=== PATIENT | male | born 1995 | race Caucasian/White ===

== ENCOUNTER 2017-10-13 08:46 | Emergency (ER) | payer OTHER ==
[2017-10-13] MEDS: NAPROXEN 250 MG TAB PO (09:36)
[2017-10-13] MEDS: LIDOCAINE W/EPINEPHRINE 1% 20ML VIAL SC (09:37)
[2017-10-13] MEDS ORDERED: NEOSPORIN OINT 0.9 GM PKT (FLOOR STOCK) As Ordered (10:38)
[2017-10-13] MEDS: BACITRACIN OINT 30GM TOP (11:10)
== END 2017-10-13 11:25 | disposition home or self-care (01) ==
LOC: M ED 08:46
DX: S81.012A Laceration without foreign body, left knee, initial encounter (principal); S90.112A Contusion of left great toe without damage to nail, initial encounter; W01.0XXA Fall on same level from slipping, tripping and stumbling without subsequent striking against object, initial encounter; Y92.89 Other specified places as the place of occurrence of the external cause; F90.9 Attention-deficit hyperactivity disorder, unspecified type; F42.9 Obsessive-compulsive disorder, unspecified; Z88.8 Allergy status to other drugs, medicaments and biological substances; Z98.890 Other specified postprocedural states; Z79.899 Other long term (current) drug therapy
CPT/HCPCS: 73564